=== PATIENT | female | born 1965 ===

== ENCOUNTER 2024-08-20 11:45 | Inpatient (IN) | payer OTHER ==
[~2024-08-20] VITALS: Ht 152.4 cm; Wt 57.2 kg
[2024-08-20] MEDS ORDERED: GLIPIZIDE XL5 MG PO (12:04)
[2024-08-20] MEDS ORDERED: SYNTHROID88 MCG PO (12:04)
[2024-08-20] MEDS ORDERED: LOPRESSOR25 MG PO (12:04)
[2024-08-20] MEDS ORDERED: VASOTEC20 M1 PO (12:05)
[2024-08-26] MEDS ORDERED: ATORVASTATIN CA40 MG (09:11)
[2024-08-26] MEDS ORDERED: OMEPRAZOLE40 MG (09:11)
[2024-08-26] MEDS ORDERED: FAMOTIDINE40 MG (09:11)
[2024-08-26] MEDS ORDERED: LISINOPRIL20 MG (09:11)
[2024-08-26] MEDS ORDERED: SUCRALFATE1 GM (09:11)
[2024-08-26] MEDS ORDERED: BUPIVACAINE HCL 30 ML VIAL IJ ONE (12:45)
[2024-08-26] MEDS ORDERED: CEFTRIAXONE SODIUM 2,000 MG VIAL IV ONE (12:45)
[2024-08-26] MEDS ORDERED: METRONIDAZOLE/SODIUM CHLORIDE 500 MG/100 ML PIGGYBACK IV ONE (12:45)
[2024-08-26] MEDS ORDERED: LIDOCAINE HCL 1% 20ML VIAL IJ ONE (12:45)
[2024-08-26] MEDS ORDERED: MORPHINE SULFATE 4 MG/ML CARTRIDGE IV PRN (13:45)
[2024-08-26] MEDS ORDERED: ONDANSETRON HCL 2 MG/ML VIAL IV PRN (13:45)
[2024-08-26] MEDS ORDERED: DEXTROSE 50 % IN WATER 0.5 G/ML DISP.SYRIN IV PRN ×2 (13:45→17:30)
[2024-08-26] MEDS ORDERED: OxyCODONE HCL 5 MG TABLET (ROXICODONE) PO PRN (13:45)
[2024-08-26] MEDS ORDERED: RINGERS SOLUTION,LACTATED 1,000 ML IV SCH (13:45)
[2024-08-26] MEDS ORDERED: ACETAMINOPHEN 500 MG GEL..CAP PO SCH (14:00)
[2024-08-26] MEDS ORDERED: MORPHINE SULFATE 2 MG/ML CARTRIDGE IV ONE (14:30)
[2024-08-26 16:59] LABS: HEMATOCRIT 37.9 % (36.0-45.00); HEMOGLOBIN 12.8 g/dL (12.0-15.00); MEAN CELL VOLUME 88.1 fL (80.00-100.00); MEAN CORPUSCULAR HEMOGLOBIN 29.7 pg (27.00-32.0); MEAN CORPUSCULAR HGB CONC 33.7 g/dl (32.0-36.0); PLATELET COUNT 289 K/uL (150-450)
[2024-08-26] MEDS ORDERED: GABAPENTIN 300 MG CAPSULE PO SCH (17:00)
[2024-08-26] MEDS ORDERED: POLYETHYLENE GLYCOL 3350 17 GM BLIST.PACK PO SCH (17:00)
[2024-08-26] MEDS ORDERED: HYOSCYAMINE SULFATE 0.125 MG TAB.SUBL SL SCH (17:00)
[2024-08-26] MEDS ORDERED: METOCLOPRAMIDE HCL 5 MG/ML VIAL IV SCH (17:00)
[2024-08-26] MEDS ORDERED: SIMETHICONE 125 MG CAPSULE PO SCH (17:00)
[2024-08-26] MEDS ORDERED: ENALAPRILAT DIHYDRATE 1.25 MG/ML VIAL IV PRN (17:15)
[2024-08-26] MEDS ORDERED: INSULIN LISPRO 1,000 UNIT/10 ML UNITS SUBCUTANEO PRN (17:30)
[2024-08-26 19:43] VITALS: BP 124/61; O2SAT 97
[2024-08-26] MEDS ORDERED: CELECOXIB 200 MG CAPSULE PO SCH (21:00)
[2024-08-26] MEDS ORDERED: FAMOTIDINE/PF 20 MG/2 ML VIAL IV PUSH SCH (21:00)
[2024-08-27] VITALS: BP 119/58; O2SAT 99
[2024-08-27] MEDS ORDERED: SYNTHROID 88 MCG PO SCH (06:00)
[2024-08-27 07:05] LABS: HEMATOCRIT 39.5 % (36.0-45.00); HEMOGLOBIN 13.5 g/dL (12.0-15.00); MEAN CELL VOLUME 88.6 fL (80.00-100.00); MEAN CORPUSCULAR HEMOGLOBIN 30.2 pg (27.00-32.0); MEAN CORPUSCULAR HGB CONC 34.1 g/dl (32.0-36.0); PLATELET COUNT 297 K/uL (150-450); RED BLOOD COUNT 4.46 M/uL (4.00-6.00)
[2024-08-27 07:56] LABS: ALBUMIN 3.9 gm/dL (3.4-5.0); CALCIUM 8.7 mg/dL (8.5-10.1); CREATININE SERUM 0.67 mg/dL (0.55-1.02); GFR 90.72; MAGNESIUM 2.1 mg/dL (1.8-2.4); PHOSPHOROUS 2.6 mg/dL (2.5-4.9); POTASSIUM 4.61 mEq/L (3.5-5.1)
[2024-08-27 08:00] VITALS: BP 133/62; O2SAT 98
[2024-08-27] MEDS ORDERED: LISINOPRIL 20 MG TABLET PO SCH (09:00)
[2024-08-27] MEDS ORDERED: ATORVASTATIN CALCIUM 40 MG TABLET PO SCH (17:00)
[2024-08-27] MEDS ORDERED: ENOXAPARIN SODIUM 40 MG/0.4 ML SYRINGE SUBCUTANEO SCH (17:00)
[2024-08-27 17:09] VITALS: BP 116/58; O2SAT 98
[2024-08-27 23:20] VITALS: BP 114/66; O2SAT 96
[2024-08-28 06:52] LABS: HEMATOCRIT 35.5 % (36.0-45.00); HEMOGLOBIN 12.1 g/dL (12.0-15.00); MEAN CELL VOLUME 87.8 fL (80.00-100.00); MEAN CORPUSCULAR HGB CONC 34.2 g/dl (32.0-36.0); PLATELET COUNT 284 K/uL (150-450); RED BLOOD COUNT 4.04 M/uL (4.00-6.00); RED CELL DISTRIBUTION WIDTH 13.9 % (11.5-14.5)
[2024-08-28 08:00] LABS: CALCIUM 8.5 mg/dL (8.5-10.1); CREATININE SERUM 0.51 mg/dL (0.55-1.02); GFR 124.29; MAGNESIUM 2.1 mg/dL (1.8-2.4); POTASSIUM 4.01 mEq/L (3.5-5.1)
[2024-08-28 08:14] LABS: PHOSPHOROUS 1.5 mg/dL (2.5-4.9)
[2024-08-28 08:28] VITALS: BP 120/71; O2SAT 97
[2024-08-28] MEDS ORDERED: ENOXAPARIN SODIUM 40 MG/0.4 ML SYRINGE SUBCUTANEO SCH (09:00)
[2024-08-28] MEDS ORDERED: POTASSIUM PHOS,M-BASIC-D-BASIC 15 MM in 0.9 % SODIUM CHLORIDE 250 ML IV NR (09:30)
== END 2024-08-28 18:10 | disposition home or self-care (01) | DRG 330 ==
LOC: O/R 08-26 07:04 → SURH 08-26 11:45 → SURG 08-26 15:29
PROVIDERS: Internal Medicine Geriatric Medicine; ADMIT Surgery; ATTEND Surgery
PROC: 0DBP4ZZ Excision of Rectum, Percutaneous Endoscopic Approach (ICD-10-PCS; 2024-08-26)
PROC: 0DNW4ZZ Release Peritoneum, Percutaneous Endoscopic Approach (ICD-10-PCS; 2024-08-26)
PROC: 0DJD8ZZ Inspection of Lower Intestinal Tract, Via Natural or Artificial Opening Endoscopic (ICD-10-PCS; 2024-08-26)
PROC: 0DTN4ZZ Resection of Sigmoid Colon, Percutaneous Endoscopic Approach (ICD-10-PCS; principal; 2024-08-26 12:00)
DX: K57.30 Diverticulosis of large intestine without perforation or abscess without bleeding (principal); K62.5 Hemorrhage of anus and rectum; K60.1 Chronic anal fissure; I10 Essential (primary) hypertension